=== PATIENT | female | born 1990 | race Caucasian/White ===

== ENCOUNTER 2017-08-29 09:47 | Inpatient (IN) | payer OTHER ==
[~2017-08-29 09:47] MED LIST: OXYTOCIN 30 UNITS/LR 500 ML BAG IV
[2017-08-29] MEDS ORDERED: OXYTOCIN 30 UNITS/LR 500 ML IV ×2 (10:30→19:00)
[2017-08-29] MEDS ORDERED: MISOPROSTOL 200 MCG TAB PR ×2 (10:30→19:00)
[2017-08-29] MEDS: LACTATED RINGER'S 1,000 ML IV ×2 (10:30)
[2017-08-29] MEDS ORDERED: CARBOPROST 250 MCG INJ IM ×2 (10:30→19:00)
[2017-08-29] MEDS ORDERED: METHYLERGONOVINE 0.2 MG INJ IM ×2 (10:30→19:00)
[2017-08-29] MEDS ORDERED: CLINDAMYCIN 900 MG/D5W (PMX) 50 ML IV (10:30)
[2017-08-29 11:01] LABS: ADD MAN DIFF? NO
[2017-08-29 11:04] LABS: WHITE BLOOD COUNT 11.7 10^3/ul (4.8-10.8)
[2017-08-29 11:04] LABS: BASOPHILS % 0.1 % (0.0-2.0); EOSINOPHILS % 0.2 % (0.0-7.0); HEMATOCRIT 34.5 % (37.0-47.0); HEMOGLOBIN 10.9 g/dl (12.0-16.0); LYMPHOCYTES # 2.3 10^3/ul (0.8-2.9); LYMPHOCYTES % 19.6 % (15.0-51.0); MEAN CORPUSCULAR HEMOGLOBIN 25.5 pg (29.0-33.0); MEAN CORPUSCULAR HGB CONC 31.6 g/dl (32.0-37.0); MEAN CORPUSCULAR VOLUME 80.6 fl (82.0-101.0); MEAN PLATELET VOLUME 11.4 fl (7.4-10.4); MONOCYTE # 0.7 10^3/ul (0.3-0.9); MONOCYTES % 5.6 % (0.0-11.0); NEUTROPHIL # 8.7 10^3/ul (1.6-7.5); NEUTROPHILS % 74.1 % (39.0-77.0); PLATELET COUNT 281 10^3/UL (140-415); RED BLOOD COUNT 4.28 10^6/ul (4.20-5.40); RED CELL DISTRIBUTION WIDTH 14.5 % (11.5-14.5)
[2017-08-29 11:45] LABS: INR 1.03; PROTIME 13.6 Sec (11.9-14.9); PT RATIO 1.1
[2017-08-29 11:48] LABS: PARTIAL THROMBOPLASTIN TIME 28.2 Sec (25.0-35.0)
[2017-08-29 11:57] LABS: HEPATITIS B SURFACE ANTIGEN NEGATIVE (NEGATIVE)
[2017-08-29] MEDS ORDERED: morphine SULFATE/PF (10 MG/10 ML) INJ (13:05)
[2017-08-29] MEDS ORDERED: PHENYLephrine (100 MCG/ML) 10ML SYG (13:05)
[2017-08-29] MEDS ORDERED: ONDANSETRON 4 MG INJ (13:05)
[2017-08-29] MEDS ORDERED: OXYTOCIN 10 UNIT INJ (13:05)
[2017-08-29] MEDS ORDERED: BUPIVACAINE 0.75%/DEXT (SPINAL) 2 ML INJ ×2 (13:06→13:09)
[2017-08-29] MEDS ORDERED: ONDANSETRON 4 MG INJ IV (15:00)
[2017-08-29] MEDS ORDERED: NALOXONE (0.4 MG/ML) INJ IV (15:00)
[2017-08-29] MEDS ORDERED: morphine 2 MG INJ IV (15:00)
[2017-08-29 15:25] LABS: RAPID PLASMA REAGIN NONREACTIVE (NR)
[2017-08-29] MEDS: OXYTOCIN 30 UNITS/LR 500 ML IV ×2 (15:26→20:06)
[2017-08-29] MEDS: DIPHENHYDRAMINE 50 MG INJ IV (15:43)
[2017-08-29] MEDS ORDERED: CEFAZOLIN 1 GM/50 ML (PMX) 50 ML IVPB (19:00)
[2017-08-29] MEDS ORDERED: OXYCODONE/ACETAMINOPHEN (5/325) TAB PO ×2 (19:00)
[2017-08-29] MEDS ORDERED: HYDROCODONE/APAP (5/325) TAB PO (19:00)
[2017-08-29] MEDS: SENNA/DOCUSATE NA (8.6MG/50MG) TAB PO (21:00)
[2017-08-30] MEDS: OXYTOCIN 30 UNITS/LR 500 ML IV ×4 (00:21→23:00)
[2017-08-30] MEDS: CLINDAMYCIN 900 MG/D5W (PMX) 50 ML IVPB (05:16)
[2017-08-30 07:29] LABS: ADD MAN DIFF? NO
[2017-08-30 07:33] LABS: BASOPHILS % 0.2 % (0.0-2.0); EOSINOPHILS # 0.1 10^3/ul (0.0-0.5); EOSINOPHILS % 0.6 % (0.0-7.0); HEMATOCRIT 30.8 % (37.0-47.0); HEMOGLOBIN 9.9 g/dl (12.0-16.0); LYMPHOCYTES # 1.8 10^3/ul (0.8-2.9); LYMPHOCYTES % 14.1 % (15.0-51.0); MEAN CORPUSCULAR HEMOGLOBIN 25.8 pg (29.0-33.0); MEAN CORPUSCULAR HGB CONC 32.1 g/dl (32.0-37.0); MEAN CORPUSCULAR VOLUME 80.4 fl (82.0-101.0); MEAN PLATELET VOLUME 10.9 fl (7.4-10.4); MONOCYTE # 1.1 10^3/ul (0.3-0.9); MONOCYTES % 8.4 % (0.0-11.0); NEUTROPHIL # 9.5 10^3/ul (1.6-7.5); NEUTROPHILS % 76.3 % (39.0-77.0); PLATELET COUNT 222 10^3/UL (140-415); RED BLOOD COUNT 3.83 10^6/ul (4.20-5.40); RED CELL DISTRIBUTION WIDTH 14.6 % (11.5-14.5)
[2017-08-30 07:33] LABS: WHITE BLOOD COUNT 12.5 10^3/ul (4.8-10.8)
[2017-08-30] MEDS: SENNA/DOCUSATE NA (8.6MG/50MG) TAB PO ×2 (08:22→21:13)
[2017-08-30] MEDS: LANOLIN 7 GM TUBE TOP (08:22)
[2017-08-30] MEDS: KETOROLAC 30 MG INJ IV ×2 (08:23→13:27)
[2017-08-30] MEDS: IBUPROFEN 600 MG TAB PO (17:31)
[2017-08-31] MEDS: HYDROCODONE/APAP (5/325) TAB PO (01:17)
[2017-08-31] MEDS: OXYTOCIN 30 UNITS/LR 500 ML IV ×6 (03:00→23:00)
[2017-08-31] MEDS: IBUPROFEN 600 MG TAB PO ×5 (05:51→23:52)
[2017-08-31] MEDS: SENNA/DOCUSATE NA (8.6MG/50MG) TAB PO ×2 (09:50→21:08)
[2017-09-01] MEDS: OXYTOCIN 30 UNITS/LR 500 ML IV ×2 (03:00→07:00)
[2017-09-01] MEDS: IBUPROFEN 600 MG TAB PO ×2 (06:24→13:08)
[2017-09-01] MEDS: SENNA/DOCUSATE NA (8.6MG/50MG) TAB PO (09:50)
[2017-09-01] MEDS: DIPHTH/TET/ACEL PERTUSS (ADULT) 0.5 ML VIAL IM* (10:32)
== END 2017-09-01 13:45 | disposition home or self-care (01) | DRG 766 ==
LOC: L-D 09:47 → PP1 18:14
PROVIDERS: Obstetrics & Gynecology
PROC: 10D00Z1 Extraction of Products of Conception, Low, Open Approach (ICD-10-PCS; principal; 2017-08-29 12:30)
PROC: 0UB70ZZ Excision of Bilateral Fallopian Tubes, Open Approach (ICD-10-PCS; 2017-08-29 12:30)
DX: O34.211 Maternal care for low transverse scar from previous cesarean delivery (principal); Z3A.39 39 weeks gestation of pregnancy; Z37.0 Single live birth
CPT/HCPCS: 85025; 85610; 85730; 86592; 86850; 86900; 86901; 87340; 88302; 99464